=== PATIENT | male | born 1990 | race Caucasian/White ===

== ENCOUNTER 2018-07-07 13:15 | Emergency (ER) | payer BC ==
[2018-07-07] MEDS ORDERED: HYDROmorphone 1 MG/ML Syringe IM ONE (13:45)
[2018-07-07] MEDS ORDERED: Ondansetron 4 MG Tab.DIS PO ONE (13:45)
--- NOTE | 2018-07-07 13:56 | EDM.PDOC ---
ED HPI GENERAL MEDICAL PROBLEM - General Chief Complaint: Back Pain or Injury Stated Complaint: BACK PAIN Time Seen by Provider: 07/07/18 13:31 Source of Information: Reports: Patient History Limitations: Reports: No Limitations - History of Present Illness INITIAL COMMENTS - FREE TEXT/NARRATIVE: Patient is a 27-year-old male who presents to the ED complaining of low back pain with radiation of discomfort along the posterior upper left leg. States yesterday he awoke with severe pain to his low back. The prior day he had been mowing the yard and washing his carpets. He had been moving furniture a good majority of the day. States he has history of chronic low back pain. Has not received a MRI. He has been taking tramadol and meloxicam fo the pain. Denies history of kidney stones, recent trauma precipitating pain, saddle anesthesia, incontinence to urine or stool, fever, swelling, or rash. He has been utilizing a tinz unit as well for pain. Patient states after being evaluated by chiropractor earlier this morning the pain has drastically worsened. He states the chiropractor aggressively attempted to pop his hips, cross body. 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 Other Treatments CHINESE HERBALIST: meloxicam this am Lower Back Pain Score (Numeric/FACES): 7 - Related Data Allergies Allergy/AdvReac Type Severity Reaction Status Date / Time No Known Allergies Allergy Verified 07/07/18 13:58 Home Meds: Home Meds Acetaminophen/HYDROcodone [[place] 325-5 MG] 1 tab PO Q6H PRN #8 tablet 07/07/18 [ Rx] Ondansetron [Zofran ODT] 4 mg PO Q6H PRN #8 tab.dis 07/07/18 [Rx] predniSONE [Prednisone] 40 mg PO QAM #10 tablet 07/07/18 [Rx] Past Medical History Musculoskeletal History: Reports: Back Pain, Chronic Psychiatric History: Reports: ADHD, Anxiety, Depression Social & Family History - Family History Family Medical History: Noncontributory - Tobacco Use Smoking Status *Q: Current Every Day Smoker Years of Tobacco use: 7 Packs/Tins Daily: 0.5 - Caffeine Use Caffeine Use: Reports: Coffee, Energy Drinks, Soda - Recreational Drug Use Recreational Drug Use: Yes Drug Use in Last 12 Months: No Recreational Drug Type: Reports: Marijuana/Hashish ED ROS GENERAL - Review of Systems Review Of Systems: See Below Constitutional: Reports: No Symptoms Respiratory: Reports: No Symptoms Cardiovascular: Reports: No Symptoms GI/Abdominal: Reports: No Symptoms Musculoskeletal: Reports: Back Pain, Leg Pain (left posterior leg pain to the back of the knee. ) Skin: Reports: No Symptoms Neurological: Reports: Numbness (chronic numbness to the left great toe, present for 2 to 3 wks. ), Gait Disturbance. Denies: Difficulty Walking ED EXAM,LOWER BACK PAIN/INJURY - Physical Exam Exam: See Below Exam Limited By: No Limitations General Appearance: Alert, WD/WN, Mild Distress Ears: Hearing Grossly Normal Nose: Normal Inspection Throat/Mouth: Normal Voice, No Airway Compromise Neck: Normal Inspection, Supple Respiratory/Chest: No Respiratory Distress, Lungs Clear, Normal Breath Sounds, Chest Non-Tender Cardiovascular: Normal Peripheral Pulses, Regular Rate, Rhythm, No Murmur GI/Abdominal: Normal Bowel Sounds, Soft, Non-Tender, No Organomegaly, No Distention Back Exam: Normal Inspection, Paraspinal Tenderness (RIGht SI joint tendernss), Vertebral Tenderness (mild with palpation along l5-s1. ). No: CVA Tenderness (L ), CVA Tenderness (R) Extremities: Normal Inspection, Normal Range of Motion, No Pedal Edema, Normal Capillary Refill. No: Non-Tender (mild tenderness along the posterior left upper leg. ) Neurological: Alert, Normal Mood/Affect, Normal Dorsiflexion, CN II-XII Intact, Normal Plantar Flexion, No Motor/Sensory Deficits, Oriented x 3. No: Straight Leg Raise (L), Straight Leg Raise (R), Saddle Anesthesia (per patient) Psychiatric: Normal Affect, Normal Mood Skin Exam: Warm, Dry, Intact, Normal Color, No Rash Course - Vital Signs Last Recorded V/S: Last Vital Signs Temp 98.4 F 07/07/18 13:20 Pulse 72 07/07/18 13:20 Resp 16 07/07/18 13:20 BP 135/89 07/07/18 13:20 Pulse Ox 100 07/07/18 13:20 - Orders/Labs/Meds Meds: Medications Discontinued Medications Generic Name Dose Route Start Last Admin Trade Name Freq PRN Reason Stop Dose Admin Hydromorphone HCl 1 mg 07/07/18 13:45 07/07/18 13:59 Dilaudid IM 07/07/18 13:46 1 mg ONETIME ONE Administration Ondansetron HCl 4 mg 07/07/18 13:45 07/07/18 13:58 Zofran Odt PO 07/07/18 13:46 4 mg ONETIME ONE Administration - Re-Assessments/Exams Free Text/Narrative Re-Assessment/Exam: Patient has mild pain along the low back L5-S1. Point of maximal pain is along the left SI joint. Slight tenderness noted posterior upper leg with palpation. No pain to the distal calf. Patient states faint numbness and tingling to the left great toe. On examination patient there is no sensory changes. Patient has no in incontinence to urine or stool. He was adjusted by his chiropractor earlier this morning. Patient states the chiropractor was quite aggressive this morning with his therapies. Patient states with returning to work this morning after the chiropractor treatment he bent over the next and pain worsened. He did take Tylenol meloxicam with no relief. He is on tramadol chronically for plantar fasciitis. Straight leg raise was negative. At this point do not believe MRI study is required on an emergent basis. He has an appointment scheduled with PCP for this coming Saturday. I will treat his pain with Dilaudid 1 mg IM. Also ordered Zofran 4 mgs odt for nausea. 1433 reassessment, patient is feeling much better. Pain is a 4/10. Patient is laying on his belly. He is ready to go home. Work excuse will be provided for patient to return to work this week. States their is no opportunities at work for light duty. I will provide a work release for 3 days. Return to work Saturday. The patient remained hemodynamically stable while under my care in the E.D. I discussed the concerning symptoms for which to returnto the E.D. with the patient/family. The patient/family verbalized understanding. All questions were answered. Departure - Departure Time of Disposition: 14:44 Disposition: Home, Self-Care 01 Condition: Good Clinical Impression: Sacroiliac joint pain - Discharge Information Prescriptions: Acetaminophen/HYDROcodone [[place] 325-5 MG] 1 tab PO Q6H PRN #8 tablet PRN Reason: Pain (Severe 7-10) Ondansetron [Zofran ODT] 4 mg PO Q6H PRN #8 tab.dis PRN Reason: Nausea predniSONE [Prednisone] 40 mg PO QAM #10 tablet Instructions: Sacroiliac Joint Dysfunction, Back Pain, Adult, [id number], Pain Medicine Instructions, [id number] Referrals: Marion Dorsey PA-C [Primary Care Provider] - Forms: ED Department Discharge, ED Return to Work/School Form Additional Instructions: Take Tylenol and ibuprofen in alternating fashion for pain. Utilize ice to the affected area 3 times a day, 30 minutes in duration, do not apply directly on the skin. Refrain from any activities that cause worsening pain. For severe pain take [place] one tab every 6 hours. Do not take Tylenol and [place] together. Take prednisone 40 mg every day for the next 5 days. Utilize Zofran as needed for nausea and vomiting as directed. See her primary care provider and of this week or first part of next week for reevaluation. Return to the ED if you develop any new or worsening symptoms.
== END 2018-07-07 15:05 | disposition home or self-care (01) ==
LOC: JD.ED 13:15
DX: M53.3 Sacrococcygeal disorders, not elsewhere classified (principal); F17.210 Nicotine dependence, cigarettes, uncomplicated
CPT/HCPCS: 96372; 99283; A9270; J1170

== ENCOUNTER 2019-11-28 14:14 | Emergency (ER) | payer BC ==
[2019-11-28] MEDS ORDERED: Ketorolac 60 MG/2 ML SDV IM ONE (14:46)
--- NOTE | 2019-11-28 14:55 | EDM.PDOC ---
ED HPI GENERAL MEDICAL PROBLEM - General Chief Complaint: Laceration Stated Complaint: LT PINKY FINGER LAC AND POSSIBLE FRACTURE Time Seen by Provider: 11/28/19 14:37 Source of Information: Reports: Patient, RN Notes Reviewed History Limitations: Reports: No Limitations - History of Present Illness INITIAL COMMENTS - FREE TEXT/NARRATIVE: Patient is a 29-year-old male who presents to the ED for evaluation of a left pinky finger injury. 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 He states that this landed on his left pinky finger. He has a small flap type laceration to the lateral aspect of the DIP on the left pinky, and also a very small laceration to the anterior portion of the DIP of the left pinky. Patient notes that he is not able to move his finger much at all, he states that it hurts more to extend the finger. He was having some slight numbness and tingling, but states that he can still feel touch. He notes that his last tetanus was roughly 5 years ago. Patient states that he is right-handed. He did not take any sort of pain medications prior to arrival, he states the pain is throbbing, stinging, and very sharp. Left Finger-Little Pain Score (Numeric/FACES): 8 - Related Data Allergies Allergy/AdvReac Type Severity Reaction Status Date / Time No Known Allergies Allergy Verified 11/28/19 14:37 Home Meds: Home Meds Dextroamphetamine/Amphetamine [Adderall] 25 mg PO DAILY 11/20/18 [History] LORazepam [Ativan] 0.5 mg PO Q8H PRN #21 tab 11/20/18 [Rx] traMADol HCl [Tramadol HCl] 50 mg PO DAILY 11/20/18 [History] Acetaminophen/HYDROcodone [[place] 325-5 MG] 1 tab PO Q6H PRN #6 tablet 11/28/19 [ Rx] Amitriptyline [Elavil] 10 mg PO DAILY 11/28/19 [History] Escitalopram [Lexapro] 10 mg PO DAILY 11/28/19 [History] Rizatriptan Benzoate [Rizatriptan] 5 mg PO DAILY PRN 11/28/19 [History] Past Medical History Musculoskeletal History: Reports: Back Pain, Chronic Neurological History: Reports: Migraines Psychiatric History: Reports: ADHD, Anxiety, Depression Social & Family History - Family History Family Medical History: Noncontributory - Tobacco Use Smoking Status *Q: Current Every Day Smoker Years of Tobacco use: 6 Packs/Tins Daily: 0.4 - Caffeine Use Caffeine Use: Reports: Energy Drinks Other Caffeine Use: 2 per day - Recreational Drug Use Recreational Drug Use: No ED ROS GENERAL - Review of Systems Review Of Systems: Comprehensive ROS is negative, except as noted in HPI. Musculoskeletal: Reports: Hand Pain (L pinky finger pain) Skin: Reports: Wound (see HPI) ED EXAM, SKIN/RASH Exam: See Below Exam Limited By: No Limitations General Appearance: Alert, WD/WN, No Apparent Distress Respiratory/Chest: No Respiratory Distress, Lungs Clear, Normal Breath Sounds, No Accessory Muscle Use, Chest Non-Tender Cardiovascular: Normal Peripheral Pulses, Regular Rate, Rhythm, No Murmur Extremities: Normal Inspection (except for L pinky finger), Normal Capillary Refill, Limited Range of Motion (of L pinky finger) Neurological: Alert, Oriented, Normal Cognition, No Motor/Sensory Deficits Psychiatric: Normal Affect, Normal Mood Skin: Warm, Dry, Normal Color, No Rash, Wound/Incision (Flap type laceration, roughly 1 cm in width over the posterior portion of the DIP of the left pinky finger, there is a small linear laceration to the anterior aspect of the left pinky DIP roughly 5 mm in length. No active bleeding noted.) ED SKIN PROCEDURES - Laceration/Wound Repair Left Posterior Distal Digit - 5th (Baby) Appearance: Superficial, Clean Distal NVT: Neuro & Vascular Intact, No Tendon Injury Skin Prep: Chlorhexidine (Hibiciens), Saline Exploration/Debridement/Repair: Wound Explored, In a Bloodless Field, Explored to Base, No Foreign Material Found Closed with: Dermabond Lac/Wound length In cm: 1 Sterile Dressing Applied: Nurse Tetanus Status Addressed: Yes Complications: No Left Anterior Distal Digit - 5th (Baby) Appearance: Superficial, Linear, Clean Distal NVT: Neuro & Vascular Intact, No Tendon Injury Skin Prep: Chlorhexidine (Hibiciens), Saline Exploration/Debridement/Repair: Wound Explored, In a Bloodless Field, Explored to Base, No Foreign Material Found Closed with: Dermabond Lac/Wound length In cm: 0.5 Sterile Dressing Applied: Nurse Tetanus Status Addressed: Yes Complications: No Course - Vital Signs Last Recorded V/S: Last Vital Signs Temp 98.3 F 11/28/19 14:34 Pulse 91 11/28/19 14:34 Resp 16 11/28/19 14:34 BP 134/77 11/28/19 14:34 Pulse Ox 97 11/28/19 14:34 - Orders/Labs/Meds Meds: Medications Discontinued Medications Generic Name Dose Route Start Last Admin Trade Name Freq PRN Reason Stop Dose Admin Ketorolac Tromethamine 60 mg 11/28/19 14:46 11/28/19 15:07 Toradol IM 11/28/19 14:47 60 mg ONETIME ONE Administration - Re-Assessments/Exams Free Text/Narrative Re-Assessment/Exam: 11/28/19 15:42 X-rays were obtained and demonstrate no acute fracture or bony abnormality of the left pinky finger. There was an old healed fifth metacarpal fracture noted , but no other acute abnormalities. Departure - Departure Time of Disposition: 15:37 Disposition: Home, Self-Care 01 Condition: Fair Clinical Impression: Crushing injury of left little finger, initial encounter Laceration of left little finger w/o foreign body w/o damage to nail Qualifiers: Encounter type: initial encounter Qualified Code(s): S61.217A - Laceration without foreign body of left little finger without damage to nail, initial encounter - Discharge Information *PRESCRIPTION DRUG MONITORING PROGRAM REVIEWED*: Yes *COPY OF PRESCRIPTION DRUG MONITORING REPORT IN PATIENT FELICIA: No Prescriptions: Acetaminophen/HYDROcodone [[place] 325-5 MG] 1 tab PO Q6H PRN #6 tablet PRN Reason: Pain Instructions: Crush Injury of the Hand, [id number] Referrals: Marion Dorsey PA-C [Primary Care Provider] - Forms: ED Department Discharge Additional Instructions: You have been evaluated in the ED for your left pinky finger injury. Your x-ray demonstrated no fracture or bony abnormality. Please use ice as tolerated to the affected area. Please try to elevate your hand above your heart level also to reduce swelling. You may take Tylenol 500 mg or ibuprofen 600mg q6 hrs for pain relief. Please do so until you have a tolerable level of pain with activity. Do not exceed 4000mg Tylenol, Do not exceed 3200mg ibuprofen in a 24 hour time period. You were given a prescription for a strong pain medication, hydrocodone/ acetaminophen 5/325, please take 1 tab every 6 hours as needed for pain not relieved by Tylenol or ibuprofen alone. Please note this does contain Tylenol in it, so do not take more than 4000 mg in a 24-hour time span. These medications can be addictive, so please take as few as possible to achieve adequate pain control. These meds can also be quite constipating, recommend that you increase your oral fluid intake and take a stool softener like MiraLAX while taking these medications. You have been given an aluminum foam cage type splint to limit your flexion/ extension of your left pinky digit. Please try to keep in place as much as possible to allow the wounds to heal. Please return to ED if your symptoms should change or worsen. Sepsis Event Note - Evaluation Sepsis Screening Result: No Definite Risk - Focused Exam Vital Signs: Vital Signs Temp Pulse Resp BP Pulse Ox 11/28/19 14:34 98.3 F 91 16 134/77 97 Date Exam was Performed: 11/28/19 Time Exam was Performed: 15:42
--- NOTE | 2019-11-28 15:19 | CR ---
Left hand: 4 views of the left hand were obtained. Comparison: No previous left hand exam. Slight deformity of the 5th metacarpal is again noted most likely due to old healed fracture. Joint spaces are preserved. No acute fracture, dislocation or other bony abnormality is seen. Impression: 1. Probable old healed fracture within the 5th metacarpal. 2. Nothing acute is appreciated on left hand exam. Diagnostic code #2 This report was dictated in [place] Standard Time
--- NOTE | 2019-11-28 15:19 | CR ---
Left 5th finger: 3 views centered to the left 5th finger were obtained. Joint spaces are preserved. No acute fracture, dislocation or other bony abnormality is seen. Minimal deformity of the 5th metacarpal is seen likely representing old healed fracture. Impression: 1. Findings as noted above. Nothing acute is appreciated on left 5th finger study. Diagnostic code #2 This report was dictated in [place] Standard Time
== END 2019-11-28 15:55 | disposition home or self-care (01) ==
LOC: JD.ED 14:14
DX: S67.197A Crushing injury of left little finger, initial encounter (principal); S61.217A Laceration without foreign body of left little finger without damage to nail, initial encounter; F17.210 Nicotine dependence, cigarettes, uncomplicated; Z79.899 Other long term (current) drug therapy; W23.1XXA Caught, crushed, jammed, or pinched between stationary objects, initial encounter
CPT/HCPCS: 12001; 73130; 73140; 96372; 99283; J1885

== ENCOUNTER 2022-07-03 08:09 | Emergency (ER) | payer BC, OTHER ==
[2022-07-03] MEDS ORDERED: Aspirin 81 MG Tab.Chew PO ONE (08:41)
[2022-07-03] MEDS ORDERED: Sodium Chloride 0.9% 10 ML Syringe FLUSH PRN (08:41)
[2022-07-03 09:26] LABS: ESTIMATED GFR 92 mL/min (>60)
[2022-07-03 10:06] LABS: CORONAVIRUS COVID-19 NAA NEGATIVE (NEGATIVE)
== END 2022-07-03 10:55 | disposition home or self-care (01) ==
LOC: JD.ED 08:09
DX: R07.89 Other chest pain (principal); Z87.891 Personal history of nicotine dependence; Z20.822 Contact with and (suspected) exposure to COVID-19
CPT/HCPCS: 0241U; 36415; 71046; 71046-26; 80053; 84443; 84484; 85025; 85379; 93005; 93010; 99284; 99285; A9270-GY; J3490